=== PATIENT | female | born 1960 | race Caucasian/White ===

== ENCOUNTER 2021-02-17 15:10 | Emergency (ER) | payer OTHER ==
[~2021-02-17] VITALS: Ht 172.7 cm; Wt 81.7 kg
[2021-02-17] MEDS ORDERED: SYNTHROID300 MCG PO (15:28)
[2021-02-17] MEDS ORDERED: COLACE100 MG PO (15:28)
[2021-02-17] MEDS ORDERED: FENOFIBRATE160 MG PO (15:28)
[2021-02-17] MEDS ORDERED: LYRICA300 MG PO (15:28)
[2021-02-17] MEDS ORDERED: CYTOMEL 5MCG TA5 MCG PO (15:29)
[2021-02-17] MEDS ORDERED: PROTONIX 20 MG20 MG PO (15:29)
[2021-02-17] MEDS ORDERED: LANTUS SUBQ (15:29)
[2021-02-17] MEDS ORDERED: INVOKANA100 MG PO (15:30)
[2021-02-17] MEDS ORDERED: NOVOLIN R100 UNIT/1 SUBQ (15:30)
[2021-02-17] MEDS ORDERED: MIDODRINE HCL10 MG PO (15:30)
[2021-02-17] MEDS ORDERED: FLORINEF ACETA0.1 MG PO (15:31)
[2021-02-17 15:59] LABS: ABSOLUTE MONOCYTES 0.4 thou/uL (0.0-1.2); ABSOLUTE NEUTROPHILS 3.8 thou/uL (1.6-8.1); BASOPHILS 0.2 %; EOSINOPHILS 0.1 %; HEMATOCRIT 37.8 % (37.0-47.0); HEMOGLOBIN 12.7 gm/dL (12.0-15.0); LYMPHOCYTES 19.6 %; MCH 27.6 pg (26.0-34.0); MCHC 33.7 g/dL (28.0-37.0); MCV 81.8 fL (80.0-100.0); MONOCYTES 7.3 %; MPV 8.1 fl. (7.2-11.1); NUCLEATED RBCS 0 /100WBC; PLATELET COUNT* 108 thou/uL (150-400); POLYS 72.8 %; RBC 4.62 mil/uL (4.20-5.00); RDW-CV 17.5 % (10.5-14.5); WBC 5.2 thou/uL (4.0-11.0)
[2021-02-17 16:12] LABS: CALCIUM 8.5 mg/dL (8.5-10.1); CREATININE 1.6 mg/dL (0.6-1.3); POTASSIUM 4.4 mmol/L (3.5-5.1)
[2021-02-17 16:23] LABS: TOTAL BILIRUBIN 0.3 mg/dL (<0.1-1.0); TOTAL PROTEIN 6.7 g/dL (6.4-8.2)
[2021-02-17] MEDS ORDERED: PREDNISONE 20 M20 M1 PO (16:54)
[2021-02-17 16:55] VITALS: BP 135/70
[2021-02-17 16:55] LABS: URINE BILIRUBIN NEGATIVE (Negative); URINE BLOOD NEGATIVE (Negative); URINE CLARITY CLEAR; URINE COLOR YELLOW; URINE GLUCOSE-RANDOM 3+ (Negative); URINE KETONES NEGATIVE (Negative); URINE LEUKOCYTES-REFLEX NEGATIVE (Negative); URINE NITRITE-REFLEX NEGATIVE (Negative); URINE PROTEIN 1+ (Negative); URINE SPECIFIC GRAVITY <= 1.005 (1.005-1.030); URINE UROBILINOGEN 0.2 E.U./dl (0.2-1.0)
--- NOTE | 2021-02-18 13:57 | EKG ---
[place] [address] ELECTROCARDIOGRAM REPORT Name: FELICE BARRIGAKILydia Landers Room: [facility]#: [id number] Admission: 02/17/21 Attend Phys: Discharge: 02/17/21 Date of : 60 Date of Service: 02/17/21 1535 Report #: [id number] THIS REPORT FOR: //name// [facility] ED Test Date: 2021-02-17 Test Time: 15:35:37 Pat Name: JOHNATHAN BARRIGA Department: Room: Gender: F Embroidery Operator: IRVIN : 1960 Requested By: Kulwinder Miller Order Number: [id number] MD: Edilson Duron Measurements Intervals [place] Rate: 61 P: [place]: 205 QRS: -23 QRSD: 115 T: 78 QT: 445 QTc: 449 Interpretive Statements Atrial-paced rhythm Nonspecific intraventricular conduction delay Borderline low voltage, extremity leads No previous ECG available for comparison Electronically Signed On 02-18-2021 13:57:41 CDT by Edilson Duron [email or web address] <ELECTRONICALLY SIGNED> By: Edilson Duron MD, LOCATED WITHIN [facility] 02/18/21 1357 1535 1535 Edilson Duron MD, LOCATED [facility]IN [facility] /EPI
== END 2021-02-17 16:55 | disposition home or self-care (01) ==
LOC: M.ERS 15:10
PROVIDERS: Family Medicine
DX: R53.1 Weakness (principal); E11.9 Type 2 diabetes mellitus without complications; G35 Multiple sclerosis; Z88.8 Allergy status to other drugs, medicaments and biological substances; Z90.49 Acquired absence of other specified parts of digestive tract; Z90.89 Acquired absence of other organs; Z85.810 Personal history of malignant neoplasm of tongue